=== PATIENT | female | born 1970 | race Caucasian/White ===

== ENCOUNTER 2018-01-09 11:30 | Day surgery (SDC) | payer OTHER ==
[2018-01-09] MEDS ORDERED: GLYCOPYRROLATE 0.4 MG INJ (12:54)
[2018-01-09] MEDS ORDERED: PROPOFOL 20 ML (12:54)
[2018-01-09] MEDS ORDERED: NEOSTIGMINE 3 MG/3 ML SYRINGE (12:54)
[2018-01-09] MEDS ORDERED: ROCURONIUM 50 MG INJ (12:54)
[2018-01-09] MEDS ORDERED: FENTAnyl 50 MCG/ML VIAL (12:55)
[2018-01-09] MEDS ORDERED: ONDANSETRON 4 MG INJ (12:55)
[2018-01-09] MEDS ORDERED: METOCLOPRAMIDE 10 MG INJ (12:55)
[2018-01-09] MEDS ORDERED: MIDAZOLAM 1 MG/ML 2 ML INJ (12:57)
[2018-01-09] MEDS: EPI INJ (13:35)
[2018-01-09] MEDS: COCAINE 4% 4 ML TOP (13:35)
[2018-01-09] MEDS: LIDOCAINE INJ (13:35)
[2018-01-09] MEDS: NEOMYC/POLYMYX/BACIT 30 GM OINT (13:40)
[2018-01-09] MEDS ORDERED: OXYCODONE/ACETAMINOPHEN (5/325) TAB PO ×2 (15:00)
[2018-01-09] MEDS ORDERED: HYDROmorphONE 1 MG/5 ML IV SYRINGE IV ×3 (15:00)
== END 2018-01-09 16:40 | disposition home or self-care (01) ==
LOC: SDS 11:30
DX: J34.2 Deviated nasal septum (principal); J34.3 Hypertrophy of nasal turbinates
CPT/HCPCS: 30520; 88300